=== PATIENT | male | born 1960 | race Caucasian/White ===

== ENCOUNTER → 2024-03-04 | Outpatient (CLI) | payer MEDICARE, OTHER, SELFPAY ==
--- NOTE | 2024-03-04 10:43 | EKG12_ITS ---
Test Reason : PREOP Blood Pressure : / mmHG Vent. Rate : 069 BPM Atrial Rate : 069 BPM P-R Int : 152 ms QRS Dur : 096 ms QT Int : 366 ms P-R-T Axes : -03 022 018 degrees QTc Int : 392 ms Normal sinus rhythm Normal ECG Confirmed by AYUSH VILLAREAL, JENNIFER ([id number]), graphic editor REFUGIO CLARK ([id number]) on 03/05/2024 10:27:41 AM Referred By: Henny Plaza Confirmed By:BRENNA PEACOCK MD
== END | disposition home or self-care (01) ==
LOC: PSN 10:41
PROVIDERS: PCP Student in an Organized Health Care Education/Training Program; Referring Provider Physician Assistant; Visit Provider Physician Assistant
DX: Z01.810 Encounter for preprocedural cardiovascular examination (principal)
CPT/HCPCS: 93005